=== PATIENT | female | born 1950 | race Caucasian/White ===

== ENCOUNTER → 2016-12-21 16:43 | Outpatient (CLI) | payer MEDICAID ==
[2013-08-30 13:59] VITALS: BMI 29.3
[~2016-12-21 16:43] MED LIST: ASPIRIN 81 MG E81 MG PO; BABY ASPIRIN81 MG PO; MICRO-K10 MEQ PO; NORCO 10/325 TA1 TA1 PO; PRISTIQ50 MG PO
== END | disposition home or self-care (01) ==
LOC: D.MAMMO 10:15
DX: Z12.31 Encounter for screening mammogram for malignant neoplasm of breast (principal)

== ENCOUNTER → 2017-01-25 18:20 | Outpatient (CLI) | payer MEDICAID ==
[2013-08-30 13:59] VITALS: BMI 29.3
== END | disposition home or self-care (01) ==
LOC: D.MAMMO 10:30
DX: R91.1 Solitary pulmonary nodule (principal)